=== PATIENT | female | born 1950 | race Caucasian/White ===

== ENCOUNTER 2022-02-10 02:23 | Emergency (ER) | payer MEDICARE, OTHER ==
[~2022-02-10] VITALS: Ht 162.5 cm; Wt 58.2 kg
[2022-02-10] MEDS ORDERED: ASPIRIN 81 MG CHEW (CHILDREN'S ASA) PO ONE (02:45)
[2022-02-10 02:54] LABS: BASOPHILS % (AUTO) 1 % (0-10); EOSINOPHILS # (AUTO) 0.2 10^3/uL (0.0-0.3); EOSINOPHILS % (AUTO) 3 % (0-10); HEMATOCRIT 38 % (35-52); HEMOGLOBIN 13.2 g/dL (11.5-16.0); LYMPHOCYTES # (AUTO) 2.1 10^3/uL (1.0-4.0); LYMPHOCYTES % (AUTO) 37 % (12-44); MEAN CORPUSCULAR HEMOGLOBIN 31 pg (25-34); MEAN CORPUSCULAR HGB CONC 34 g/dL (32-36); MEAN CORPUSCULAR VOLUME 91 fL (80-99); MEAN PLATELET VOLUME 10.6 fL (9.0-12.2); MONOCYTES # (AUTO) 0.6 10^3/uL (0.0-1.0); MONOCYTES % (AUTO) 10 % (0-12); NEUTROPHILS # (AUTO) 2.7 10^3/uL (1.8-7.8); NEUTROPHILS % (AUTO) 49 % (42-75); PLATELET COUNT 219 10^3/uL (130-400); WHITE BLOOD COUNT 5.5 10^3/uL (4.3-11.0)
[2022-02-10] MEDS ORDERED: ASPIRIN 325 MG (5 GR) TABLET PO ONE (03:00)
[2022-02-10 03:32] LABS: INR 0.9 (0.8-1.4); PROTHROMBIN TIME PATIENT 12.7 SEC (12.2-14.7)
[2022-02-10 03:36] LABS: CREATININE SERUM 0.84 MG/DL (0.60-1.30); POTASSIUM 3.5 MMOL/L (3.6-5.0)
[2022-02-10 03:37] LABS: ALBUMIN 4.5 GM/DL (3.2-4.5); BILIRUBIN,TOTAL 0.5 MG/DL (0.1-1.0); CALCIUM 9.9 MG/DL (8.5-10.1); MAGNESIUM 2.3 MG/DL (1.6-2.4); TOTAL PROTEIN 6.9 GM/DL (6.4-8.2)
--- NOTE | 2022-02-10 03:39 | Diagnostic Imaging Report ---
Indication: Chest pain Portable chest 2:49 AM Heart size and pulmonary vascularity are normal. Lungs are clear. There are no effusions or pneumothoraces. IMPRESSION: No acute abnormalities in the chest Dictated by: Dictated on workstation # [id number]
[2022-02-10] MEDS ORDERED: MELO7.5T46 (03:47)
[2022-02-10] MEDS ORDERED: ATOR20TA66 (03:47)
[2022-02-10] MEDS ORDERED: OMEP20CA18 (03:47)
[2022-02-10] MEDS ORDERED: AMIT50TA3 (03:47)
[2022-02-10] MEDS ORDERED: CALC-250 PO (03:47)
[2022-02-10] MEDS ORDERED: BUSP5TAB59 (03:47)
[2022-02-10] MEDS ORDERED: DULO60CA59 (03:47)
[2022-02-10] MEDS ORDERED: Fish Oil (03:47)
[2022-02-10] MEDS ORDERED: ASCO100024 PO (03:47)
--- NOTE | 2022-02-10 05:42 | ED Chest Pain ---
General Chief Complaint: Cardiac/General Problems Stated Complaint: CHEST PAIN Nursing Triage Note: Patient arrival per [facility] EMS crew for chest tightness described as "with a hot flash feeling from neck down." Pt reported to EMS it was resolving as they were taking her vitals. Pt's sister gave her a glass of wine prior to EMS arriving "to hlep her." Denies cardiac or HTN history. Pt moved to [place] less than 2 mo ago. Source: patient, EMS Exam Limitations: no limitations History of Present Illness Date Seen by Provider: Feb 10, 2022 Time Seen by Provider: 02:36 Initial Comments This 71-year-old woman presents to the emergency room via EMS after waking at 0200 with a pain or tightness in her upper chest. She also describes it as a hot flash running down her neck into her chest and back. She was noted to have hypertension. Symptoms had alleviated by the time of EMS arrival, and she complains of no pain on arrival to the ER. She has no known history of coronary artery disease. She did spend part of the day outside in the sun and heat as well as swimming. EMS noted her to be a bit anxious. She denies any other symptoms. Allergies and Home Medications Allergies Coded Allergies: codeine (Verified Adverse Reaction, Mild, Vomiting, 02/10/22) Patient Home Medication List Home Medication List Reviewed: Yes Amitriptyline HCl (Amitriptyline HCl) 50 Mg Tablet, (Reported) Entered as Reported by: CECIL VERNON on 02/10/22346 Last Action: New Order Ascorbic Acid (Vitamin C) 1,000 Mg Tablet, 1,000 MG PO DAILY, (Reported) Entered as Reported by: CECIL VERNON on 02/10/22346 Last Action: New Order Atorvastatin Calcium (Atorvastatin Calcium) 20 Mg Tablet, (Reported) Entered as Reported by: CECIL VERNON on 02/10/22346 Last Action: New Order Buspirone HCl (Buspirone HCl) 5 Mg Tablet, (Reported) Entered as Reported by: CECIL VERNON on 02/10/22346 Last Action: New Order Cholecalciferol (Vitamin D3) (Vitamin D3) 125 Mcg (5000 Unit) Tablet, 125 MCG PO, (Reported) Entered as Reported by: CECIL VERNON on 02/10/22346 Last Action: New Order Duloxetine HCl (Duloxetine HCl) 60 Mg Capsule., (Reported) Entered as Reported by: CECIL VERNON on 02/10/22346 Last Action: New Order Meloxicam (Meloxicam) 7.5 Mg Tablet, (Reported) Entered as Reported by: CECIL VERNON on 02/10/22346 Last Action: New Order Omeprazole (Omeprazole) 20 Mg Capsule.dr (Reported) Entered as Reported by: CECIL VERNON on 02/10/22346 Last Action: New Order [Fish Oil] , (Reported) Entered as Reported by: CECIL VERNON on 02/10/22346 Last Action: New Order Review of Systems Review of Systems Constitutional: no symptoms reported EENTM: No Symptoms Reported Respiratory: No Symptoms Reported Cardiovascular: See HPI Gastrointestinal: No Symptoms Reported Genitourinary: No Symptoms Reported Musculoskeletal: no symptoms reported Skin: no symptoms reported Psychiatric/Neurological: See HPI Endocrine: No Symptoms Reported Hematologic/Lymphatic: No Symptoms Reported Past [id number]-[id number] Hx Patient Social History Tobacco Use?: No Smokeless Tobacco Frequency: Unknown if Ever Used Use of E-Cig and/or Vaping Se: Unknown if Ever Used Substance use?: Yes Substance type: Marijuana Alcohol Use?: Yes Alcohol Frequency: Once in a while Pt feels they are or have been: No Immunizations Up To Date Influenza Vaccine Up-to-Date: No; Not Current First/Initial COVID19 Vaccinat: unknown date Second COVID19 Vaccination Louie: unknown date Third COVID19 Vaccination Date: unknown date COVID19 Vaccine Eyelet Cutter: unknown by patient Past Medical History Surgery/Hospitalization HX: Hyst, C/S, Anxiety, GERD, Depression, Hyperlipidemia Surgeries: Yes Section, Hysterectomy Respiratory: No Cardiac: Yes High Cholesterol Neurological: No : No Gastroesophageal Reflux Musculoskeletal: No Endocrine: No HEENT: No Cancer: No Psychosocial: Yes Anxiety, Depression Physical Exam Vital Signs Vital Signs - First Documented 02/10/22 02:24 Temp 36.3 Pulse 65 Resp 21 B/P (MAP) 183/149 (160) Pulse Ox 98 O2 Delivery Room Air Capillary Refill : Less Than 3 Seconds Height, Weight, BMI Height: '" Weight: lbs. oz. kg; 22.00 BMI Method: General Appearance: No Apparent Distress, WD/WN HEENT: PERRL/EOMI, Other (Face is red from mild sunburn. Sclera and conjunctiva are mildly erythematous.) Neck: Normal Inspection; No JVD Respiratory: Chest Non Tender, Lungs Clear, Normal Breath Sounds, No Accessory Muscle Use Cardiovascular: Regular Rate, Rhythm, No Edema, No Murmur Gastrointestinal: Normal Bowel Sounds, Non Tender, Soft Extremity: Normal Inspection, No Calf Tenderness, No Pedal Edema Neurologic/Psychiatric: Alert, Oriented x3, No Motor/Sensory Deficits, Normal Mood/Affect Skin: Normal Color, Warm/Dry Progress/Results/Core Measures Results/Orders Lab Results Laboratory Tests Test 02/10/22 02:30 02/10/22 06:00 Range/Units White Blood Count 5.5 4.3-11.0 10^3/uL Red Blood Count 4.21 3.80-5.11 10^6/uL Hemoglobin 13.2 11.5-16.0 g/dL Hematocrit 38 35-52 % Mean Corpuscular Volume 91 80-99 fL Mean Corpuscular Hemoglobin 31 25-34 pg Mean Corpuscular Hemoglobin Concent 34 32-36 g/dL Red Cell Distribution Width 11.9 10.0-14.5 % Platelet Count 219 130-400 10^3/uL Mean Platelet Volume 10.6 9.0-12.2 fL Immature Granulocyte % (Auto) 0 % Neutrophils (%) (Auto) 49 42-75 % Lymphocytes (%) (Auto) 37 12-44 % Monocytes (%) (Auto) 10 0-12 % Eosinophils (%) (Auto) 3 0-10 % Basophils (%) (Auto) 1 0-10 % Neutrophils # (Auto) 2.7 1.8-7.8 10^3/uL Lymphocytes # (Auto) 2.1 1.0-4.0 10^3/uL Monocytes # (Auto) 0.6 0.0-1.0 10^3/uL Eosinophils # (Auto) 0.2 0.0-0.3 10^3/uL Basophils # (Auto) 0.0 0.0-0.1 10^3/uL Immature Granulocyte # (Auto) 0.0 0.0-0.1 10^3/uL Prothrombin Time 12.7 12.2-14.7 SEC INR Comment 0.9 0.8-1.4 Activated Partial Thromboplast Time 29 24-35 SEC Sodium Level 142 135-145 MMOL/L Potassium Level 3.5 L 3.6-5.0 MMOL/L Chloride Level 104 98-107 MMOL/L Carbon Dioxide Level 26 21-32 MMOL/L Anion Gap 12 5-14 MMOL/L Blood Urea Nitrogen 9 7-18 MG/DL Creatinine 0.84 0.60-1.30 MG/DL Estimat Glomerular Filtration Rate 73 BUN/Creatinine Ratio 11 Glucose Level 104 70-105 MG/DL Calcium Level 9.9 8.5-10.1 MG/DL Corrected Calcium 9.5 8.5-10.1 MG/DL Magnesium Level 2.3 1.6-2.4 MG/DL Total Bilirubin 0.5 0.1-1.0 MG/DL Aspartate Amino Transf (AST/SGOT) 24 5-34 U/L Alanine Aminotransferase (ALT/SGPT) 15 0-55 U/L Alkaline Phosphatase 96 40-136 U/L Myoglobin 64.8 10.0-92.0 NG/ML Troponin I < 0.30 < 0.30 <0.30 NG/ML Total Protein 6.9 6.4-8.2 GM/DL Albumin 4.5 3.2-4.5 GM/DL My Orders Orders - AMALIA HUDSON MD Cbc With Automated Diff (02/10/22 02:43) Magnesium (02/10/22 02:43) Chest 1 View Ap/Pa Only (02/10/22 02:43) Ekg Tracing (02/10/22 02:43) Comprehensive Metabolic Panel (02/10/22 02:43) Myoglobin Serum (02/10/22 02:43) Protime With Inr (02/10/22 02:43) Partial Thromboplastin Time (02/10/22 02:43) O2 (02/10/22 02:43) Monitor-Rhythm Ecg Trace Only (02/10/22 02:43) Lipid Panel (02/11/22 06:00) Ed Iv/Invasive Line Start (02/10/22 02:43) Troponin I Fs (02/10/22 02:43) Aspirin Tablet (Aspirin Tablet) (02/10/22 03:00) Troponin I Fs (02/10/22 06:00) Medications Given in ED Current Medications Medications Dose Ordered Sig/Niyah Route Start Time Stop Time Status Last Admin Dose Admin Aspirin 325 mg ONCE ONCE PO 02/10/22 03:00 02/10/22 03:01 DC 02/10/22 03:19 325 MG Vital Signs/I&O 02/10/22 02:24 Temp 36.3 Pulse 65 Resp 21 B/P (MAP) 183/149 (160) Pulse Ox 98 O2 Delivery Room Air Blood Pressure Mean: 160 Progress Progress Note #1: Time: 05:41 Progress Note Patient has not experienced any further symptoms since arrival. Blood pressure has improved. She received aspirin. Repeat troponin 4 hours after onset of pain is pending. Progress Note #2: Time: :41 Progress Note Repeat troponin was negative. Patient had no further episodes of pain or cardiac events. She did have persistent hypertension but did not require emergent treatment. She is being advised to follow-up with her primary care provider within the next week for repeat blood pressure check. Initial ECG Impression Date: Feb 10, 2022 Initial ECG Impression Time: 02:33 Initial ECG Rate: 62 Initial ECG Rhythm: Normal Sinus Initial ECG Intervals: Normal Initial ECG Impression: Normal Comment Normal sinus rhythm with no ST elevation or depression. No abnormal intervals or axis deviation. Diagnostic Imaging Diagonstic Imaging: Xray Plain Films/CT/US/NM/MRI: chest Comments NAME: DAVONTE OSCAR [facility] REC#: [id number] PT STATUS: REG ER : 1950 PHYSICIAN: AMALIA HUDSON MD ADMIT DATE: 02/10/22/ER FS Signed Date of Exam:02/10/22 CHEST 1 VIEW AP/PA ONLY Indication: Chest pain Portable chest 2:49 AM Heart size and pulmonary vascularity are normal. Lungs are clear. There are no effusions or pneumothoraces. IMPRESSION: No acute abnormalities in the chest Dictated by: Dictated on workstation # [id number] Dict: 02/10/22336 Trans: 02/10/22337 TCB [id number] Interpreted by: GARRY GARCIA MD Electronically signed by: GARRY GARCIA MD 02/10/22337 Departure Impression Primary Impression: Chest pain Qualified Codes: R07.9 - Chest pain, unspecified Additional Impression: Episode of hypertension Disposition: HOME, SELF-CARE Condition: Improved Departure-Patient Inst. Decision time for Depature: 06:42 Referrals: NO,LOCAL PHYSICIAN (PCP/Family) Primary Care Physician Patient Instructions: Chest Pain, High Blood Pressure ED Add. Discharge Instructions: Follow-up with your primary care provider soon as possible. You need to have your blood pressure checked at your primary care office within the next week. If your blood pressure remains persistently elevated, you may need to start treatment for high blood pressure. Avoid consuming things that can elevate your blood pressure such as excessive salt, stimulants such as caffeine, decongestant medications, ADD medications, diet supplements, energy drinks, etc. Return to the ER if you have worsening symptoms. All discharge instructions reviewed with patient and/or family. Voiced understanding. AMALIA HUDSON MD Feb 10, 2022 05:41
[2022-02-10 07:00] VITALS: BP 150/90
== END 2022-02-10 07:00 | disposition home or self-care (01) ==
LOC: ER FS 02:36
DX: R07.89 Other chest pain (principal); I10 Essential (primary) hypertension
CPT/HCPCS: 36415; 71045; 80053; 83735; 83874; 84484; 85025; 85610; 85730; 93005; 93041